=== PATIENT | female | born 1990 | race Caucasian/White ===

== ENCOUNTER → 2021-05-06 | Outpatient (CLI) | payer OTHER | LOC: CT 09:13 | DX: R93.2 Abnormal findings on diagnostic imaging of liver and biliary tract (principal); R59.9 Enlarged lymph nodes, unspecified; K76.9 Liver disease, unspecified | CPT/HCPCS: 74170; Q9967 ==

== ENCOUNTER → 2021-05-19 | Outpatient (CLI) | payer OTHER | LOC: NM 03-29 08:10 | DX: R93.7 Abnormal findings on diagnostic imaging of other parts of musculoskeletal system (principal); R59.9 Enlarged lymph nodes, unspecified; K76.89 Other specified diseases of liver | CPT/HCPCS: 74183; 78306; A9503; A9577 ==

== ENCOUNTER → 2021-11-11 | Outpatient (CLI) | payer OTHER | LOC: MRI 10-28 08:30 | DX: R93.2 Abnormal findings on diagnostic imaging of liver and biliary tract (principal); R59.9 Enlarged lymph nodes, unspecified; K76.9 Liver disease, unspecified | CPT/HCPCS: 74183; A9577 ==